=== PATIENT | male | born 1955 | race Caucasian/White ===

== ENCOUNTER 2017-03-20 10:00 | Emergency (ER) | payer OTHER ==
[~2017-03-20] VITALS: Ht 182.9 cm; Wt 104.3 kg
[2017-03-20 10:15] VITALS: BP 155/87
[2017-03-20] MEDS ORDERED: BENZ100C PO (10:26)
[2017-03-20] MEDS ORDERED: ESCITALOPRAM OX10 MG PO (10:26)
--- NOTE | 2017-03-20 10:26 | PHYS DOC ---
Past Medical History Past Medical History: Depression Past Surgical History: Tonsillectomy, Other Additional Past Surgical Histo: hernia repair, right finger surgery, lumbar cortisone injections Alcohol Use: Occasionally Drug Use: None Adult General Chief Complaint Chief Complaint: LACERATION/AVULSION HPI HPI He is a pleasant 62-year-old male while at work was moving a piece of sheet metal when he struck the back of his hand. He sustained a very large 3 cm laceration. Difficult time getting bleeding control. He went to urgent care facility today and they're worried about tendon involvement. Patient denies any numbness and tingling to the hand, foreign body sensation, or pain in the fingers. Patient has no weakness or difficulty with range of motion. Patient's immunizations up-to-date. Review of Systems Review of Systems Constitutional: Denies fever or chills [] Musculoskeletal: Denies back pain or joint pain [] Integument: Denies rash or skin lesions [] Neurologic: Denies focal weakness or sensory changes [] All other systems were reviewed and found to be within normal limits, except as documented in this note. Current Medications Current Medications Current Medications Medications (Trade) Dose Ordered Sig/Elzbieta Start Time Stop Time Status Last Admin Dose Admin Lidocaine HCl 20 ml 1X ONCE 03/20/17 10:30 03/20/17 10:31 DC 03/20/17 11:00 20 ML Allergies Allergies Allergies Coded Allergies Type Severity Reaction Last Updated Verified No Known Drug Allergies 03/20/17 No Physical Exam Physical Exam Constitutional: Well developed, well nourished, no acute distress, non-toxic appearance. [] Cardiovascular:Heart rate regular rhythm, no murmur [] Lungs & Thorax: Bilateral breath sounds clear to auscultation [] Skin: Warm, dry, no erythema, no rash. As a very large 4 cm x 5 mm x 5 mm laceration to the dorsum of the hand and the right about2 cm below the MCP joint. Full range of motion no evidence of tendon involvement. Patient has normal strength into the muscles of the hand to flexion and extension of fingers with his MCP joint PIP joint and DIP joint patient has brisk capillary refill +2 brisk peripheral pulses no foreign body was noted that the range of motion of the laceration. The bleeding is well-controlled with direct pressure. No loss of sensation to 2 point discretion of the fingertips Extremities: No tenderness, no cyanosis, no clubbing, ROM intact, no edema. [] Neurologic: Alert and oriented X 3, normal motor function, normal sensory function, no focal deficits noted. [] Psychologic: Affect normal, judgement normal, mood normal. [] Current Patient Data Vital Signs Vital Signs Date Time Temp Pulse Resp B/P (MAP) Pulse Ox O2 Delivery O2 Flow Rate FiO2 03/20/17 10:15 98.3 63 16 96 Room Air 98.3 EKG EKG [] Radiology/Procedures Radiology/Procedures []X-ray reviewed by me 3 views of the hand at 11:07 AM 03/20/2017 foreign body underneath the skin no Bony involvement. Normal looking x-ray. Course & Med Decision Making Course & Med Decision Making Pertinent Labs and Imaging studies reviewed. (See chart for details) [] Dragon Disclaimer Dragon Disclaimer This electronic medical record was generated, in whole or in part, using a voice recognition dictation system. Departure Departure Impression: Primary Impression: Laceration of left hand Disposition: 01 HOME, SELF-CARE Condition: IMPROVED Patient Instructions: Laceration Care, Adult Additional Instructions: discharge: I've spoken with the patient and/or caregivers. I've explained the patient's condition, diagnosis and treatment plan based on information available to me at this time. I've answered the patient's and/or caregivers questions and addressed any concerns. The patient and/or caregivers have a good understanding the patient's diagnosis, condition and treatment plan as can be expected at this point. Vital signs have been stabilized. The patient's condition is stable for discharge from the emergency department. The patient will pursue further outpatient evaluation with her primary care provider or other designated consulting physician as outlined in the discharge instructions. Patient and/or caregivers are agreeable to this plan of care and follow-up instructions have been explained in detail. The patient and/or caregivers have received these instructions in written format and expressed understanding of these discharge instructions. The patient and her caregivers are aware that if any significant change in condition or worsening of symptoms should prompt him to immediately return to this of the closest emergency department. If an emergent department is not readily available I would encourage him to call [phone]. please follow-up with your primary care doctor in 10-14 days for suture removal please return here for any signs of infection or if you have any question concerns. Scripts Acetaminophen (TYLENOL) 325 Mg Tablet 1-2 TAB PO QID, #60 TAB 2 Refills Prov: YADIRA ROUSSEAU MD 03/20/17 Bacitracin (BACITRACIN) 3.5 Gm Oint...g. 1 CEM TOP TID, #3.5 GM Prov: YADIRA ROUSSEAU MD 03/20/17 Laceration Repair Lac Repair Indication: []Laceration on the dorsum of the hand measuring 4. cm in length Procedure: The patient was placed in the appropriate position and anesthesia around the [ration of the dorsum of the right hand [6 mL of 2% lidocaine]. The area was then [with Betadine and normal saline]. The laceration was [was with 4- 0 Ethilon 12 interrupted sutures]. ] The wound area was then dressed with bacitracin ointment and a nonadherent gauze.]. Total repaired wound length: [4 cm]. Other Items: [OTHER ITEMS] The patient tolerated the procedure [procedure well without, no active bleeding no foreign body noted with closure.]. Complications: [no COMPLICATIONS]. The possibility of retained foreign body and infection precautions were given YADIRA ROUSSEAU MD Mar 20, 2017 10:26
[2017-03-20] MEDS ORDERED: LIDOCAINE 2% 20 ML VIAL. IJ ONE (10:30)
--- NOTE | 2017-03-20 11:30 | RAD ---
Right hand, 3 views, 03/20/2017: History: Laceration No acute fracture or dislocation is identified. There are mild degenerative changes at scattered interphalangeal joints and moderate degenerative change at the first CMC joint. Soft tissue swelling is present over the dorsum of the hand in the metacarpal region. IMPRESSION: No acute bony abnormality is detected.
[2017-03-20] MEDS ORDERED: ACET325T9 PO (11:49)
[2017-03-20] MEDS ORDERED: BACI3.5O8 TOP (11:49)
== END 2017-03-20 11:55 | disposition home or self-care (01) ==
LOC: ER 10:00
DX: S61.411A Laceration without foreign body of right hand, initial encounter (principal); F32.9 Major depressive disorder, single episode, unspecified; W26.8XXA Contact with other sharp object(s), not elsewhere classified, initial encounter; Y93.89 Activity, other specified; Y92.89 Other specified places as the place of occurrence of the external cause; Y99.8 Other external cause status
CPT/HCPCS: 12002; 73130; 99284; J2001